=== PATIENT | female | born 1980 | race Two or more races ===

== ENCOUNTER 2020-02-17 02:11 | Emergency (ER) | payer BC, OTHER ==
[~2020-02-17] VITALS: Ht 165.1 cm; Wt 54.4 kg
--- NOTE | 2020-02-17 02:15 | NUR ---
PT RE FROM HOME C/O LFA SELF INFLICTED WOUND 3 INCHES LONG 1 INCH WIDE. BLEEDING CONTROLLED. PT STATES SHE FEELS MORE DEPRESSED. +SI -HI. PT AAOX4, RESPIRATIONS EVEN AND UNLABORED ON RA W/ NAD NOTED. PT CONNECTED TO THE MONITOR AND POX
--- NOTE | 2020-02-17 02:15 | NUR ---
PT CHANGED INTO GOWN, BELONGINGS PLACED TO LOCKER, SUICIDE PRECAUTIONS IMPLEMENTED. SITTER AT BEDSIDE FOR SAFETY
[2020-02-17] MEDS ORDERED: FENTANYL PF 100MCG/2ML AMPUL IV ONE (02:30)
[2020-02-17] MEDS ORDERED: TDAP [DIPH/PERTUSSIS/TET] 0.5 ML VIAL IM ONE ×2 (02:30→02:43)
[2020-02-17] MEDS ORDERED: LIDOCAINE 1%-EPI 1:100,000 20 ML VIAL TP ONE (02:30)
[2020-02-17 02:38] LABS: BASOPHILS % (AUTO) 0.2 % (0.0-2.0); HEMATOCRIT 41 % (33-45); HEMOGLOBIN 13.7 g/dL (11.5-14.8); LYMPHOCYTES # (AUTO) 1.2 /CMM (0.8-4.8); LYMPHOCYTES % (AUTO) 9.9 % (20.0-44.0); MEAN CORPUSCULAR HGB CONC 34 g/dl (31.0-36.0); MEAN CORPUSCULAR VOLUME 90 fL (82-100); MONOCYTES # (AUTO) 0.8 /CMM (0.1-1.30); MONOCYTES % (AUTO) 6.5 % (2.0-12.0); NEUTROPHILS # (AUTO) 10.3 /CMM (1.8-8.9); NEUTROPHILS % (AUTO) 83.4 % (43.0-81.0); PLATELET COUNT (AUTO) 196 /CMM (150-450); RED BLOOD CELL COUNT(AUTO) 4.54 MIL/uL (4.0-5.2); WHITE BLOOD COUNT (AUTO) 12.4 K/uL (4.3-11.0)
[2020-02-17] MEDS ORDERED: LIDOCAINE 1%-EPI 1:100,000 20 ML VIAL ONE (02:43)
[2020-02-17] MEDS ORDERED: FENTANYL PF 100MCG/2ML AMPUL ONE (02:43)
[2020-02-17 02:44] LABS: CALCIUM, SERUM 8.5 mg/dL (8.5-10.1); CARBON DIOXIDE 21 mmol/L (21-32); CHLORIDE 103 mmol/L (98-107); CREATININE 0.8 mg/dL (0.6-1.3); GLUCOSE 123 mg/dL (74-106); POTASSIUM 3.1 mmol/L (3.5-5.1); SODIUM SERUM 138 mmol/L (136-145); UREA NITROGEN, BLOOD 11 mg/dL (7-18)
[2020-02-17 02:49] LABS: ACETAMINOPHEN 1 ug/ml (10-30); ALANINE AMINOTRANSFERASE 32 U/L (12-78); ALBUMIN 3.7 g/dL (3.4-5.0); ALCOHOL, BLOOD < 3 mg/dL (0-0); ALKALINE PHOSPHATASE 59 U/L (46-116); ASPARTATE AMINOTRANSFERASE 34 U/L (15-37); BILIRUBIN,DIRECT 0.1 mg/dL (0.0-0.2); BILIRUBIN,TOTAL 0.6 mg/dL (0.2-1.0); TOTAL PROTEIN, SERUM 7.2 g/dL (6.4-8.2)
--- NOTE | 2020-02-17 03:22 | NUR ---
DR MACIAS AT BEDSIDE
--- NOTE | 2020-02-17 04:58 | NUR ---
PT UNABLE TO PROVIDE URINE AT THIS TIME
[2020-02-17] MEDS ORDERED: MORPHINE SULFATE INJ 4 MG/ML DISP.SYRIN ONE (05:18)
--- NOTE | 2020-02-17 05:29 | NUR ---
URINE COLLECTED AND SENT TO LAB
[2020-02-17] MEDS ORDERED: MORPHINE SULFATE INJ 2 MG/ML DISP.SYRIN IV ONE (05:30)
[2020-02-17 06:06] LABS: APPEARANCE,URINE SL CLOUDY (CLEAR); BILIRUBIN,URINE NEGATIVE (NEGATIVE); BLOOD, URINE LARGE Ery/uL (NEGATIVE); COLOR,URINE YELLOW (YELLOW); KETONES,URINE TRACE (NEGATIVE); LEUKOCYTE ESTERASE ,URINE TRACE (NEGATIVE); NITRITE, URINE NEGATIVE (NEGATIVE); PROTEIN,URINE NEGATIVE (NEGATIVE); UGLUCOSE NEGATIVE (NEGATIVE); UROBILINOGEN,URINE 0.2 EU/dL (0.2)
[2020-02-17 06:15] LABS: BACTERIA,URINE Moderate /HPF (None Seen); SQUAMOUS EPITHELIAL CELL,UR Moderate /HPF (None Seen); WBC,URINE 0-2 /HPF (0-3)
--- NOTE | 2020-02-17 06:22 | NUR ---
PT RESTING COMFORTABLY IN BED. NO ACUTE DISTRESS NOTED. VSS. SITTER AT BEDSIDE FOR SAFETY
--- NOTE | 2020-02-17 10:15 | NUR ---
SW NOTE: Chemistry Technical Officer reviewed pt's chart and consulted with Cryptoanalysis Teacher, Nidhi and LATENT FINGERPRINT EXAMINER, Narendra. Pt was brought to the ER on a 5150 hold for danger to self. Pt engaged in self-harm behavior and cut her wrist. Chemistry Technical Officer contacted [facility] Ceiling Installer On-Call, Hoda ([phone]) to inform her of the pt's status and request an evaluation to proceed with inpatient psychiatric placement if needed. Per Hoda, she will assess the pt as soon as she is on site. Aforementioned information endorsed to LATENT FINGERPRINT EXAMINERJavier, and Cryptoanalysis Teacher, Nidhi.
--- NOTE | 2020-02-17 13:59 | NUR ---
PT IS MEDICALLY AND PSYCHIATRICALLY CLEARED FOR DISCHARGE. PT DENIES HAVING AND THOUGHTS NOT FUTURE PLANS OF HURTING HERSELF. PT WAS GIVEN SEVERAL DAYS SUPPLIES FOR WOUND CARE.
[2020-02-17 14:05] VITALS: BP 113/86
--- NOTE | 2020-02-17 14:06 | NUR ---
Patient discharged to home in stable condition. Written and verbal after care instructions given. Patient verbalizes understanding of instruction.IV removed. Catheter intact and site benign. Pressure and 4x4 applied to site. No bleeding noted. Pt ambulatory with a steady gait
== END 2020-02-17 14:07 | disposition home or self-care (01) ==
LOC: ER 02:13
DX: S61.512A Laceration without foreign body of left wrist, initial encounter (principal); X78.8XXA Intentional self-harm by other sharp object, initial encounter; Y93.89 Activity, other specified; Y92.89 Other specified places as the place of occurrence of the external cause; Y99.8 Other external cause status
CPT/HCPCS: 12002; 36415; 80048; 80076; 80305; 80307; 80329; 81001; 84703; 85025; 87086; 90471; 90715; 96374; 96375; 99284; A6403; G0480; J2270; J3010; J3490; 81000-TC

== ENCOUNTER 2023-10-28 12:05 | Emergency (ER) | payer BC ==
[2023-10-28] VITALS (7 sets, daily range): BP systolic 125; BP diastolic 85; TEMP 98.4; O2SAT 98–100
[~2023-10-28] VITALS: Ht 162.6 cm; Wt 52.2 kg
[2023-10-28] MEDS: IPRATROPIUM NEB FS 0.5 MG/2.5 ML AMPUL.NEB NEB ONE (12:33)
[2023-10-28] MEDS: ALBUTEROL FS 2.5 MG/3 ML VIAL.NEB NEB ONE (12:33)
[2023-10-28] MEDS ORDERED: ALBUTEROL FS 2.5 MG/3 ML VIAL.NEB ONE ×2 (12:34→14:19)
[2023-10-28] MEDS ORDERED: IPRATROPIUM NEB FS 0.5 MG/2.5 ML AMPUL.NEB ONE (12:34)
[2023-10-28] MEDS ORDERED: predniSONE 20 MG TABLET ONE (12:43)
[2023-10-28] MEDS: predniSONE 20 MG TABLET PO ONE (12:45)
[2023-10-28] MEDS ORDERED: EPINEPHRINE (1:1000) 1 MG/ML AMPUL ONE (13:59)
[2023-10-28] MEDS ORDERED: ALBU8.5H8 INH (14:02)
[2023-10-28] MEDS ORDERED: PRED50TA PO (14:02)
[2023-10-28] MEDS: EPINEPHRINE (1:1000) 1 MG/ML AMPUL SUBCUT ONE (14:05)
[2023-10-28] MEDS: ALBUTEROL FS 2.5 MG/3 ML VIAL.NEB CONTNEB ONE (14:18)
== END 2023-10-28 15:10 | disposition home or self-care (01) ==
LOC: ER 12:05
DX: J20.8 Acute bronchitis due to other specified organisms (principal); J45.909 Unspecified asthma, uncomplicated; Z20.822 Contact with and (suspected) exposure to COVID-19
CPT/HCPCS: 99285; 71045; 87426; 96372; 94640 ×2; J0171; J7512